=== PATIENT | male | born 1990 | race Caucasian/White ===

== ENCOUNTER 2024-08-07 14:41 | Emergency (ER) | payer SELFPAY ==
--- OUTSIDE RECORDS SUMMARY | 2024-08-07 14:43 | XMS REPORT | Continuity of Care Document ---
Author Name Unknown Address [address] [facility] [place] [place] [address] [facility] thconnect Address [address] [facility] [address] [place] [place] [address] Care Team Providers Care Geographic Information Systems Director Name Role Phone Maki Hodge MD Primary Care Physician ROBYN ESCOTO Attending Clinician Unavailable Robyn Shrestha Attending Clinician [phone] NAZANIN EARLY Attending Clinician Unavailable MAKI HODGE Attending Clinician Lina Hodge MD, Maki Olguin Attending Clinician [phone] SAHRA HAN Attending Clinician Unavailable Payers Payer Name Policy Type Policy Number Effective Date Expirati on Date Source BCBS 2 [id number] 2022 00:00:00 Problems Condition Name Condition Details Condition Category Status Onset Date Resolution Date Last Treatment Date Treating Clinician Comments Source TORSTEN (generaliz ed anxiety disorder) TORSTEN (generaliz ed anxiety disorder) Disease Active 08-12 00:00: 00 Chelita Daly Depression Depression Disease Active 08-12 00:00: 00 Chelita Daly Social History Social Habit Start Date Stop Date Quantity Comments Source History SDOH Alcohol Frequency Chelita Means bold History SDOH Alcohol Std Drinks Chelita quezada History SDOH Alcohol Binge Chelita Daly History of tobacco use Cigarette Smoker Chelita Kimbrough old Alcohol intake 2021-12-14 00:00:00 2021-12-14 00:00:00 Current drinker of alcohol (finding) Chelita Daly Alcohol Comment 2021-05-29 00:00:00 2021-05-29 00:00:00 social Chelita Daly Tobacco Comment 2021-05-29 00:00:00 2021-05-29 00:00:00 a few cigarettes Chelita Daly Tobacco use and exposure 2021-05-29 00:00:00 2021-05-29 00:00:00 User of smokeless tobacco Chelita Daly Sex Ass[birth year] At 1990 00:00:00 1990 00[birth year]00:00 Chelita Daly Smoking Status Start Date Stop Date Source Occasional tobacco smoker 2021-05-29 00:00:00 Chelita Daly Medications Ordered Medication Name Filled Medication Name Start Date Stop Date Current Medication? Ordering Clinician Indication Dosage Frequency Signature (SIG) Comments Components Source Bupropion HCL XL 300 MG OR TB24 12-14 00:00: 00 Yes [id number] 300mg Take 1 tablet (300 mg total) by mouth daily Chelita Daly Bupropion HCL XL 150 MG OR TB24 2020-11 00:00: 00 12-14 00:00 :00 No [id number] TAKE 1 TABLET(150 MG) BY MOUTH DAILY Chelita Daly NEOMYCIN-PO LYMYXIN-HC, OTIC, 1 % otic Solution 08-21 00:00: 00 Yes [id number] 16398 2[drp] Q.[id number] 3D Place 2 drops into both ears 3 times daily as needed Chelita Daly Amoxicillin -Pot Clavulanate 875-125 MG oral Tablet 08-21 00:00: 00 08-29 04:59 :00 No [id number] 1{tbl} Take 1 tablet by mouth 2 times daily for 7 days Chelita Daly Bupropion HCL XL 150 MG OR TB24 08-12 00:00: 00 Yes [id number] 150mg Take 1 tablet (150 mg total) by mouth daily Chelita Daly hydrOXYzine HCl 10 MG oral Tablet 08-12 00:00: 00 Yes [id number] 10mg Q.[id number] 3D Take 1 tablet (10 mg total) by mouth 3 times daily as needed for itching or anxiety Chelita Daly Citalopram Hydrobromid e 20 MG oral Tablet 06-17 00:00: 00 08-12 00:00 :00 No [id number] 20mg Take 1 tablet (20 mg total) by mouth daily Take 1 tab daily Chelita Daly Vital Signs Vital Name Observation Time Observation Value Comments S ourlissette Systolic blood pressure 2021-12-14 22:16:00 126 mm[Hg] Chelita Seybold Diastolic blood pressure 2021-12-14 22:16:00 79 mm[Hg] Chelita Kimbrougho ld Heart rate 2021-12-14 22:16:00 83 /min Kelse y ybold Body temperature 2021-12-14 22:16:00 36.11 Moriah Chelita Tsaiybold Respiratory rate 2021-12-14 22:16:00 14 /min Chelita Tsaiybold Body height 2021-12-14 22:16:00 167.6 cm Adrianne ey Seybold Body weight 2021-12-14 22:16:00 73.12 kg Adrianne ey Seybold BMI 2021-12-14 22:16:00 26.02 kg/m2 Adrianne ey Seybold Systolic blood pressure 2021-08-21 15:30:00 128 mm[Hg] Chelita Seybold Diastolic blood pressure 2021-08-21 15:30:00 76 mm[Hg] Chelita Tsaiybo ld Heart rate 2021-08-21 15:30:00 73 /min Kelse y Seybold Body temperature 2021-08-21 15:30:00 36.56 Moriah Chelita Seybold Respiratory rate 2021-08-21 15:30:00 14 /min Chelita ybold Body height 2021-08-21 15:30:00 167.6 cm Adrianne ey Seybold Body weight 2021-08-21 15:30:00 78.019 kg Adrianne ey Seybold BMI 2021-08-21 15:30:00 27.76 kg/m2 Adrianne ey Seybold Systolic blood pressure 2021-08-12 16:25:00 102 mm[Hg] Chelita Seybold Diastolic blood pressure 2021-08-12 16:25:00 72 mm[Hg] Chelita harrison Heart rate 2021-08-12 16:25:00 98 /min Nura Daly Body temperature 2021-08-12 16:25:00 36.72 Moriah Chelita Daly Respiratory rate 2021-08-12 16:25:00 16 /min Chelita Daly Body height 2021-08-12 16:25:00 167.6 cm Adrianne Daly Body weight 2021-08-12 16:25:00 73.936 kg Adrianne Daly BMI 2021-08-12 16:25:00 26.31 kg/m2 Adrianne Daly Encounters Start Date/Time End Date/Time Encounter Type Admission Type Attending [facility] Care Department Encounter ID Source 2024-02-29 00:00:00 2024-02-29 00:00:00 Outpatient ROBYN ESCOTO [id number] [facility] 2023-03-21 00:00:00 2023-03-21 00:00:00 Outpatient ROBYN ESCOTO [id number] [facility] 2022-11-03 00:00:00 2022-11-03 00:00:00 Outpatient ROBYN ESCOTO [id number] [facility] 2022-11-03 00:00:00 2022-11-03 00:00:00 Outpatient ROBYN ESCOTO [id number] [facility] 2022-10-19 00:00:00 2022-10-19 00:00:00 Outpatient ROBYN ESCOTO [id number] [facility] 2022-09-21 00:00:00 2022-09-21 00:00:00 Outpatient ROBYN ESCOTO [id number] Chelita [facility] 2022-09-18 00:00:00 2022-09-18 00:00:00 Outpatient ROBYN ESCOTO [id number] Chelita Sey[facility]kerry 2022-08-26 00:00:00 2022-08-26 00:00:00 Outpatient [facility] ESC[facility] [id number] [facility] 2022-08-23 00:00:00 2022-08-23 00:00:00 Outpatient HUNDL, ROBYN CHELITA LEE [id number] [facility] 2022-08-16 00:00:00 2022-08-16 00:00:00 Outpatient HUNDL, ROBYN CHELITA LEE [id number] [facility] 2022-08-09 09:00:00 2022-08-09 09:30:00 Office Visit Robyn Escoto [id number] [facility] 2022-05-14 00:00:00 2022-05-14 00:00:00 Outpatient HUNDL, ROBYN LEE [id number] [facility] 2022-03-24 00:00:00 2022-03-24 00:00:00 Outpatient HUNDL, ROBYN LEE [id number] [facility] 2022-02-26 00:00:00 2022-02-26 00:00:00 Outpatient HUNDL, ROBYN LEE [id number] [facility] 2022-02-25 00:00:00 2022-02-25 00:00:00 [facility]UNDL[facility] [id number] [facility]22-02-10 00:00:00 2022-02-10 00:00:00 [facility] PREZASNAZANIN [id number] [facility] 2022-01-14 16:30:00 2022-01-14 16:30:00 Outpatient HUNDL, ROBYN LEE [id number] [facility] 2022-01-11 00:00:00 2022-01-11 00:00:00 Outpatient HUNDL, ROBYN LEE [id number] [facility] 2021-12-28 16:00:00 2021-12-28 16:00:00 Outpatient HUNDL, ROBYN LEE [id number] [facility] 2021-12-14 16:00:00 2021-12-14 16:30:00 Office Visit Hundl, Robyn [place] [id number] Chelita Daly 2021-12-11 16:30:00 2021-12-11 16:30:00 Outpatient ROBYN ESCOTORAHAT LEE [id number] [facility] 2021-12-07 00:00:00 2021-12-07 00:00:00 Outpatient ROBYN ESCOTO CHELITA LEE [id number] [facility] 2021-12-04 00:00:00 2021-12-04 00:00:00 Outpatient ROBYN ESCOTO CHELITA LEE [id number] [facility] 2021-11-13 00:00:00 2021-11-13 00:00:00 Outpatient ROBYN ESCOTO CHELITA LEE [id number] [facility] 2021-09-17 00:00:00 2021-09-17 00:00:00 Outpatient AYESHAMAKI CHELITA LEE [id number] [facility] 2021-08-21 10:27:54 2021-08-21 10:57:54 Office Visit Robyn Escoto [id number] [facility] 2021-08-12 10:53:31 2021-08-12 11:23:31 Office Visit Maki Hodge Marybelmahnaz Terrell [id number] [facility] 2021-08-07 16:30:00 2021-08-07 16:30:00 Outpatient ROBYN ESCOTO CHELITA LEE [id number] [facility] 2021-05-29 09:15:00 2021-05-29 09:15:00 Outpatient SAHRA HAN [id number] Chel[facility]
--- NOTE | 2024-08-07 15:58 | EDPHYS ---
Physician Documentation [facility] Name: Rakesh Martinez Age: 33 yrs Sex: Male : 1990 Arrival Date: 08/07/2024 Time: 14:41 Bed DX4 Private MD: ED Physician Mei Mcmillan HPI: 08/07 15:54 This 33 yrs old Male presents to ER via Ambulatory with complaints of left heel pain sp3 with psbl infection. 15:54 33-year-old male with no significant past medical history presents with left heel sp3 redness and area where he had a "cracked heel due to dry skin". Patient states [place] the [place] and is concerned about vibrio. He denies any blisters, fever, joint pain, GI symptoms, or any other concerning symptoms. ROS otherwise negative.. Historical: - Allergies: 15:31 No Known Allergies; cm10 - Home Meds: 15:31 bupropion HCl 300 mg Oral Tablet, Extended Release 24 hr 1 tab daily [Active]; cm10 - PMHx: 15:31 Anxiety; cm10 - PSHx: 15:31 None; cm10 - Immunization history:: Adult Immunizations up to date, Client reports receiving the 2nd dose of the Covid vaccine, Last tetanus immunization: unknown. - Infectious Disease History:: Denies. - Social history:: Smoking status: Patient reports the use of cigarette tobacco products, denies chronic smoking, but will smoke occasionally. ROS: 15:55 Constitutional: Negative for fever, chills, and weight loss, Eyes: Negative for injury, sp3 pain, redness, and discharge, Neck: Negative for injury, pain, and swelling, Cardiovascular: Negative for chest pain, palpitations, and edema, Respiratory: Negative for shortness of breath, cough, wheezing, and pleuritic chest pain, Abdomen/GI: Negative for abdominal pain, nausea, vomiting, diarrhea, and constipation, Back: Negative for injury and pain, Neuro: Negative for headache, weakness, numbness, tingling, and seizure, Psych: Negative for depression, anxiety, suicide ideation, homicidal ideation, and hallucinations, Allergy/Immunology: Negative for hives, rash, and allergies, Endocrine: Negative for neck swelling, polydipsia, polyuria, polyphagia, and marked weight changes, Hematologic/Lymphatic: Negative for swollen nodes, abnormal bleeding, and unusual bruising, 15:55 All other systems are negative, Exam: 15:55 Constitutional: This is a well developed, well nourished patient who is awake, alert, sp3 and in no acute distress. Head/Face: Normocephalic, atraumatic. Cardiovascular: Regular rate and rhythm with a normal S1 and S2. No gallops, murmurs, or rubs. Normal PMI, no JVD. No pulse deficits. Respiratory: Lungs have equal breath sounds bilaterally, clear to auscultation and percussion. No rales, rhonchi or wheezes noted. No increased work of breathing, no retractions or nasal flaring. 15:55 Musculoskeletal/extremity: Punctate scabbed lesion on left posterior heel. Mild redness noted. No blistering, subcu air, pain out of proportion to exam or any other concerning findings. No proximal joint pain, streaking, lymphadenopathy or any other symptoms down either.. Vital Signs: 15:29 BP 129 / 85; Pulse 70; Resp 18; Temp 98.7; Pulse Ox 100% ; Weight 73.03 kg; Height 5 cm10 ft. 6 in. ; Pain 0/10; 15:29 Body Mass Index 25.99 (73.03 kg, 167.64 cm) cm10 15:29 Pain Scale: Adult cm10 MDM: 15:35 Patient medically screened. sp3 15:56 Data reviewed: vital signs, nurses notes. ED course: 33-year-old male with potential sp3 early cellulitis of left heel. Will treat with doxycycline to cover broad array of symptoms including vibrio however I do not believe patient has review at this time. Follow-up with PCP as needed.. Administered Medications: No medications were administered Disposition Summary: 08/07/24 15:57 Discharge Ordered Notes: Location: Home sp3 Condition: Stable sp3 Diagnosis - Cellulitis, unspecified sp3 Followup: sp3 - With: Private Physician - When: Upon discharge from the Emergency Department - Reason: Continuance of care Discharge Instructions: - Discharge Summary Sheet sp3 - Cellulitis, Adult sp3 Forms: - Medication Reconciliation Form sp3 - Antibiotic Education sp3 - Prescription Opioid Use sp3 - Patient Portal Instructions sp3 - Leadership Thank You Letter sp3 Prescriptions: - Doxycycline Hyclate 100 mg Oral Tablet - take 1 tablet ORAL route every 12 hours; 20 tablet; Refills: 0, Product sp3 Selection Permitted Signatures: Mei Mcmillan MD MD sp3 Mag Zhang RN RN cm10
--- NOTE | 2024-08-07 15:58 | ER ---
Nurse's Notes [facility] Name: Rakesh Martinez Age: 33 yrs Sex: Male : 1990 Arrival Date: 08/07/2024 Time: 14:41 Bed DX4 Private MD: Diagnosis: Cellulitis, unspecified Presentation: 08/07 15:29 Chief complaint: Patient states: Pt reports fissure on left heel with redness. Denies cm10 pain or drainage. Went to the beach on Tuesday and would like to be checked for infection due to vibrio bacteria in [place]. Coronavirus screen: Vaccine status: Patient reports receiving the 2nd dose of the covid vaccine. Client denies travel out of the [place] in the last 14 days. Ebola Screen: Patient negative for fever greater than or equal to 101.5 degrees Fahrenheit, and additional compatible Ebola Virus Disease symptoms Patient denies exposure to infectious person. Patient denies travel to an Ebola-affected area in the 21 days before illness onset. Initial Sepsis Screen: Does the patient meet any 2 criteria? No. Patient's initial sepsis screen is negative. Does the patient have a suspected source of infection? No. Patient's initial sepsis screen is negative. Risk Assessment: Do you want to hurt yourself or someone else? Patient reports no desire to harm self or others. Onset of symptoms is unknown. 15:29 Method Of Arrival: Ambulatory cm10 15:29 Acuity: HAJA 4 cm10 Triage Assessment: 15:31 General: Appears in no apparent distress. Behavior is calm, cooperative. Pain: Denies cm10 pain. Derm: Reports Fissure to left heel. Historical: - Allergies: 15:31 No Known Allergies; cm10 - Home Meds: 15:31 bupropion HCl 300 mg Oral Tablet, Extended Release 24 hr 1 tab daily [Active]; cm10 - PMHx: 15:31 Anxiety; cm10 - PSHx: 15:31 None; cm10 - Immunization history:: Adult Immunizations up to date, Client reports receiving the 2nd dose of the Covid vaccine, Last tetanus immunization: unknown. - Infectious Disease History:: Denies. - Social history:: Smoking status: Patient reports the use of cigarette tobacco products, denies chronic smoking, but will smoke occasionally. Screenin:35 [facility] ED Fall Risk Assessment (Adult) History of falling in the last 3 months, kb3 including since admission No falls in past 3 months (0 pts) Confusion or Disorientation No (0 pts) Intoxicated or Sedated No (0 pts) Impaired Gait No (0 pts) Mobility Assist Device Used No (0 pt) Altered Elimination No (0 pt) Score/Fall Risk Level 0 - 2 = Low Risk Oriented to surroundings. Abuse screen: Denies threats or abuse. Denies injuries from another. Nutritional screening: No deficits noted. Tuberculosis screening: No symptoms or risk factors identified. Assessment: 15:35 General: Appears in no apparent distress. Behavior is calm, cooperative. kb3 Vital Signs: 15:29 BP 129 / 85; Pulse 70; Resp 18; Temp 98.7; Pulse Ox 100% ; Weight 73.03 kg; Height 5 cm10 ft. 6 in. ; Pain 0/10; 15:29 Body Mass Index 25.99 (73.03 kg, 167.64 cm) cm10 15:29 Pain Scale: Adult cm10 ED Course: 14:43 Patient arrived in ED. ra3 14:46 Mei Mcmillan MD is Attending Physician. sp3 15:31 Triage completed. cm10 15:31 Arm band placed on right wrist. cm10 15:35 Patient has correct armband on for positive identification. Provided Education on: Plan kb3 of care. 15:35 No provider procedures requiring assistance completed. Patient did not have IV access kb3 during this emergency room visit. Administered Medications: No medications were administered Medication: 15:35 VIS not applicable for this client. kb3 Outcome: 15:57 Discharge ordered by . sp3 16:06 Discharged to home ambulatory, kb3 16:06 Condition: stable 16:06 Discharge instructions given to patient, Instructed on discharge instructions, follow up and referral plans. medication usage, wound care, Demonstrated understanding of instructions, follow-up care, medications, wound care, Prescriptions given X 1, 16:06 Patient left the ED. kb3 Signatures: Mei Mcmillan MD MD sp3 Nenita Hilario, RN RN kb3 Mag Zhang RN RN cm10 Yin Sanchez ra3
[2024-08-07 16:10] VITALS: BP 129/85; TEMP 98.7; O2SAT 100
== END 2024-08-07 16:06 | disposition home or self-care (01) ==
LOC: ER 14:41
DX: L03.116 Cellulitis of left lower limb (principal)
CPT/HCPCS: 99283